=== PATIENT | female | born 1960 | race African-American/Black ===

== ENCOUNTER 2018-07-29 04:59 | Emergency (ER) | payer BC, SELFPAY ==
[2018-07-29] MEDS ORDERED: Acetaminophen 500 MG TAB ONE (05:47)
== END 2018-07-29 06:02 | disposition home or self-care (01) ==
LOC: NAV ERS 04:59
DX: M79.672 Pain in left foot (principal); M79.671 Pain in right foot
CPT/HCPCS: 93005